=== PATIENT | male | born 1985 | race African-American/Black ===

== ENCOUNTER 2020-11-23 19:20 | Inpatient (IN) | payer OTHER ==
[2020-11-23] MEDS ORDERED: morphine CARPU-JECT 4 MG/1 ML DISP.SYRIN IVPUSH ONE (20:38)
[2020-11-23] MEDS ORDERED: morphine SULFATE 4 MG/ML VIAL ONE ×2 (21:09→22:59)
[2020-11-23 21:49] LABS: INR 1.04 (0.83-1.09); PROTHROMBIN TIME (PATIENT) 12.6 SEC (9.7-13.0)
[2020-11-23 21:53] LABS: POTASSIUM 3.8 mmol/L (3.5-5.1)
[2020-11-23 21:55] LABS: CALCIUM 9.4 mg/dL (8.5-10.1)
[2020-11-23 21:56] LABS: ALBUMIN 4.2 g/dl (3.4-5.0); BLOOD UREA NITROGEN 21.3 mg/dL (7-18)
[2020-11-23 21:59] LABS: CREATININE 1.3 mg/dL (0.55-1.3)
[2020-11-23 22:00] LABS: BILIRUBIN,TOTAL 0.4 mg/dL (0.2-1)
[2020-11-23] MEDS: morphine SULFATE 4 MG/ML VIAL IVPUSH ONE ×2 (22:11→23:18)
[2020-11-23] MEDS ORDERED: CLINDAMYCIN 900 MG PREMIX IVPB 900 MG/50 ML BAG IVPB ONE ×2 (22:49→23:00)
[2020-11-23] MEDS ORDERED: CLINDAMYCIN 600MG PREMIX IVPB 600 MG/50 ML BAG IVPB ONE (22:59)
[2020-11-24 00:07] LABS: BASO % 0.8 % (0-2.0); EOS % 0.8 % (0-4.5); HEMATOCRIT 35.7 % (35.4-49); HEMOGLOBIN 11.6 GM/dL (11.7-16.9); LYMPH % 19.1 % (8-40); MCH 26.1 pg (25.7-33.7); MCHC 32.5 g/dl (32.0-35.9); MEAN CELL VOLUME 80.3 fl (80-96); MEAN PLT VOLUME 7.6 fl (7.5-11.1); MONO % 9.7 % (3.8-10.2); NEUT % 69.6 % (42.8-82.8); PLATELET COUNT 269 K/MM3 (134-434); RBC 4.45 M/mm3 (4.00-5.60); RDW 16.1 % (11.9-15.9); WHITE BLOOD COUNT 14.7 K/mm3 (4.0-10.0)
[2020-11-24] MEDS: CLINDAMYCIN 600MG PREMIX IVPB 600 MG/50 ML BAG IVPB SCH ×2 (04:12→10:54)
[2020-11-24] MEDS ORDERED: morphine CARPU-JECT 4 MG/1 ML DISP.SYRIN IVPUSH ONE (04:35)
[2020-11-24] MEDS ORDERED: morphine SULFATE 4 MG/ML VIAL ONE (04:36)
[2020-11-24] MEDS ORDERED: HEPARIN NA (PORCINE) 5,000 UNITS/ML 1ML VIAL ONE (06:15)
[2020-11-24] MEDS: HEPARIN NA (PORCINE) 5,000 UNITS/ML 1ML VIAL SQ SCH ×3 (06:25→22:29)
[2020-11-24] MEDS ORDERED: PIPERACILLIN/TAZOB 3.375 GM 3.375 GM in DEXTROSE 5%-WATER - 50 ML IVPB SCH ×2 (10:00→13:15)
[2020-11-24] MEDS ORDERED: PIPERACILLIN/TAZOB 3.375 GM 3.375 GM/50 ML BAG IVPB ONE (10:14)
[2020-11-24] MEDS ORDERED: CLINDAMYCIN 600MG PREMIX IVPB 600 MG/50 ML BAG IVPB ONE (10:14)
[2020-11-24] MEDS ORDERED: PROPOFOL 20 ML ONE ×2 (18:08)
[2020-11-24] MEDS ORDERED: LACTATED RINGERS SOLUTION 1,000 ML IV SCH (18:30)
[2020-11-24] MEDS ORDERED: LABETALOL HCL 5 MG/1 ML (100MG/20 ML VIAL) IVPUSH PRN (18:50)
[2020-11-24] MEDS ORDERED: traMADol HCL 50 MG TABLET PO PRN (18:50)
[2020-11-24] MEDS ORDERED: hydrALAZINE HCL 20 MG/ML VIAL IVPUSH PRN (19:18)
[2020-11-24 20:29] VITALS: BMI 34.0
[2020-11-24] MEDS: LACTATED RINGERS SOLUTION 1,000 ML IV SCH (22:29)
[2020-11-24] MEDS: DOCUSATE SODIUM 100 MG CAPSULE (FP) PO SCH (22:30)
[2020-11-25] MEDS ORDERED: DEXTROSE 5%-WATER - 50 ML IVPB ONE ×3 (01:14→16:02)
[2020-11-25] MEDS ORDERED: PIPERACILLIN/TAZOBACTAM 3.375 GM VIAL IVPB ONE ×3 (01:14→16:02)
[2020-11-25] MEDS: PIPERACILLIN/TAZOB 3.375 GM 3.375 GM in DEXTROSE 5%-WATER - 50 ML IVPB SCH ×3 (01:52→17:06)
[2020-11-25] MEDS: HEPARIN NA (PORCINE) 5,000 UNITS/ML 1ML VIAL SQ SCH ×3 (05:41→21:54)
[2020-11-25] MEDS: DOCUSATE SODIUM 100 MG CAPSULE (FP) PO SCH ×3 (05:42→21:53)
[2020-11-25 09:04] LABS: BASO % 0.8 % (0-2.0); EOS % 2.1 % (0-4.5); HEMATOCRIT 35.3 % (35.4-49); HEMOGLOBIN 11.6 GM/dL (11.7-16.9); LYMPH % 24.2 % (8-40); MCH 26.6 pg (25.7-33.7); MCHC 32.8 g/dl (32.0-35.9); MEAN CELL VOLUME 81.2 fl (80-96); MEAN PLT VOLUME 7.9 fl (7.5-11.1); MONO % 7.5 % (3.8-10.2); NEUT % 65.4 % (42.8-82.8); PLATELET COUNT 279 K/MM3 (134-434); RBC 4.35 M/mm3 (4.00-5.60); RDW 16.2 % (11.9-15.9); WHITE BLOOD COUNT 10.1 K/mm3 (4.0-10.0)
[2020-11-25 09:11] LABS: INR 1.04 (0.83-1.09); PROTHROMBIN TIME (PATIENT) 12.6 SEC (9.7-13.0)
[2020-11-25 09:35] LABS: CALCIUM 8.9 mg/dL (8.5-10.1)
[2020-11-25 09:36] LABS: BLOOD UREA NITROGEN 14.2 mg/dL (7-18)
[2020-11-25 09:37] LABS: ALBUMIN 3.1 g/dl (3.4-5.0)
[2020-11-25 09:39] LABS: CREATININE 0.9 mg/dL (0.55-1.3)
[2020-11-25 09:40] LABS: BILIRUBIN,TOTAL 0.5 mg/dL (0.2-1)
[2020-11-25 09:41] LABS: TOT PROT 6.8 g/dl (6.4-8.2)
[2020-11-25] MEDS: amLODIPine BESYLATE 5 MG TABLET (FP) PO SCH (09:54)
[2020-11-25] MEDS ORDERED: CARVEDILOL 6.25 MG TABLET (FP) PO SCH (10:00)
[2020-11-25] MEDS: CARVEDILOL 6.25 MG TABLET (FP) PO SCH ×2 (11:30→21:53)
[2020-11-25] MEDS: LACTATED RINGERS SOLUTION 1,000 ML IV SCH (21:53)
[2020-11-25] MEDS: POLYETHYLENE GLYCOL 3350 119 GM BTL PO SCH (21:54)
[2020-11-25] MEDS ORDERED: SENNOSIDES 8.6MG TABLET (FP) PO SCH (22:00)
[2020-11-26] MEDS ORDERED: PIPERACILLIN/TAZOBACTAM 3.375 GM VIAL IVPB ONE ×2 (02:18→08:36)
[2020-11-26] MEDS ORDERED: DEXTROSE 5%-WATER - 50 ML IVPB ONE ×2 (02:19→08:36)
[2020-11-26] MEDS: PIPERACILLIN/TAZOB 3.375 GM 3.375 GM in DEXTROSE 5%-WATER - 50 ML IVPB SCH ×2 (02:23→10:11)
[2020-11-26] MEDS: HEPARIN NA (PORCINE) 5,000 UNITS/ML 1ML VIAL SQ SCH ×2 (05:59→13:56)
[2020-11-26] MEDS: DOCUSATE SODIUM 100 MG CAPSULE (FP) PO SCH ×2 (05:59→13:55)
[2020-11-26] MEDS: CARVEDILOL 6.25 MG TABLET (FP) PO SCH ×2 (08:38→09:26)
[2020-11-26] MEDS: POLYETHYLENE GLYCOL 3350 119 GM BTL PO SCH ×2 (08:38→09:26)
[2020-11-26] MEDS: amLODIPine BESYLATE 5 MG TABLET (FP) PO SCH ×2 (08:38→09:26)
[2020-11-26 09:34] LABS: EOS % 4.2 % (0-4.5); HEMATOCRIT 37.6 % (35.4-49); HEMOGLOBIN 12.2 GM/dL (11.7-16.9); LYMPH % 31.7 % (8-40); MCH 26.4 pg (25.7-33.7); MCHC 32.5 g/dl (32.0-35.9); MEAN CELL VOLUME 81.3 fl (80-96); MEAN PLT VOLUME 7.7 fl (7.5-11.1); MONO % 9.2 % (3.8-10.2); NEUT % 53.9 % (42.8-82.8); PLATELET COUNT 324 K/MM3 (134-434); RBC 4.62 M/mm3 (4.00-5.60); RDW 16.1 % (11.9-15.9); WHITE BLOOD COUNT 9.4 K/mm3 (4.0-10.0)
[2020-11-26 09:53] LABS: POTASSIUM 4.2 mmol/L (3.5-5.1)
[2020-11-26 10:01] LABS: ALBUMIN 3.5 g/dl (3.4-5.0); BLOOD UREA NITROGEN 10.8 mg/dL (7-18); CALCIUM 9.6 mg/dL (8.5-10.1)
[2020-11-26] MEDS ORDERED: PT OWN MED DRAWER 7, Y5N ONE (10:01)
[2020-11-26 10:05] LABS: CREATININE 1.1 mg/dL (0.55-1.3)
[2020-11-26 10:06] LABS: BILIRUBIN,TOTAL 0.5 mg/dL (0.2-1); TOT PROT 7.6 g/dl (6.4-8.2)
[2020-11-26 14:56] VITALS: BP 123/66; PULSE 88; TEMP 97.8
== END 2020-11-26 18:47 | disposition home or self-care (01) | DRG 395 ==
LOC: EDSEX 19:20 → JER 19:20 → JERBED 23:46 → J6S 11-24 20:11
PROVIDERS: ADMIT Internal Medicine; ATTEND Internal Medicine
PROC: 0D9Q3ZX Drainage of Anus, Percutaneous Approach, Diagnostic (ICD-10-PCS; principal; 2020-11-24 17:00)
DX: K61.0 Anal abscess (principal); I10 Essential (primary) hypertension; E66.01 Morbid (severe) obesity due to excess calories; E78.5 Hyperlipidemia, unspecified; Z68.34 Body mass index [BMI] 34.0-34.9, adult
CPT/HCPCS: 36415; 72193-TC; 80053; 80061; 83036; 83605; 83721; 83735; 84100; 84443; 85025; 85610; 86850; 86900; 86901; 87040; 87070; 87076; 87186; 87205; 94760; 99285-25; C9803; J1644; Q9967; U0003

== ENCOUNTER 2023-07-15 10:43 | Emergency (ER) | payer BC, OTHER ==
[2023-07-15 10:51] VITALS: BP 123/86; PULSE 83; RESP 18; TEMP 98.8; BMI 33.4
== END 2023-07-15 11:56 | disposition home or self-care (01) ==
LOC: JER 10:43 → JERFT 10:43
DX: H00.021 Hordeolum internum right upper eyelid (principal); H53.8 Other visual disturbances; H57.11 Ocular pain, right eye
CPT/HCPCS: 99283-25

== ENCOUNTER 2023-11-09 19:36 | Emergency (ER) | payer BC ==
[2023-11-09 20:05] VITALS: BP 112/64; PULSE 110; RESP 18; TEMP 99.5; BMI 33.4
[2023-11-09] MEDS ORDERED: DEXAMETHASONE SOD PHOSPHATE 10 MG/1 ML VIAL IM ONE (22:02)
[2023-11-09] MEDS ORDERED: ALBUTEROL SO4 2.5/IPRATROPIUM 0.5 INH SOL 3 ML VIAL.NEB. NEB ONE ×4 (22:02→23:08)
[2023-11-09] MEDS ORDERED: DEXAMETHASONE SOD PHOSPHATE 10 MG/1 ML VIAL ONE (22:12)
[2023-11-09] MEDS ORDERED: KETOROLAC TROMETHAMINE 30 MG/1 ML VIAL IM ONE (22:36)
[2023-11-09] MEDS ORDERED: KETOROLAC TROMETHAMINE 30 MG/1 ML VIAL ONE (22:37)
== END 2023-11-09 23:43 | disposition home or self-care (01) ==
LOC: JER 19:36 → JERFT 19:36
PROC: 3E0233Z Introduction of Anti-inflammatory into Muscle, Percutaneous Approach (ICD-10-PCS; principal; 2023-11-09)
PROC: 3E023GC Introduction of Other Therapeutic Substance into Muscle, Percutaneous Approach (ICD-10-PCS; 2023-11-09)
PROC: 3E0F7GC Introduction of Other Therapeutic Substance into Respiratory Tract, Via Natural or Artificial Opening (ICD-10-PCS; 2023-11-09)
PROC: 3E0F7GC Introduction of Other Therapeutic Substance into Respiratory Tract, Via Natural or Artificial Opening (ICD-10-PCS; 2023-11-09)
DX: R09.81 Nasal congestion (principal); J10.1 Influenza due to other identified influenza virus with other respiratory manifestations; Z20.822 Contact with and (suspected) exposure to COVID-19
CPT/HCPCS: 0241U-QW; 87651; 99284-25; J1100

== ENCOUNTER 2024-10-17 20:00 | Inpatient (IN) | payer BC ==
[2024-10-17] MEDS ORDERED: ACETAMINOPHEN INJECTION 100 ML ONE (20:49)
[2024-10-17] MEDS: ACETAMINOPHEN 1000 MG/100 ML BAG IVPB ONE (21:00)
[2024-10-17 21:10] LABS: HEMATOCRIT 40.2 % (35.4-49); HEMOGLOBIN 13.1 G/dL (11.7-16.9); MCH 25.7 pg (25.7-33.7); MCHC 32.5 g/dl (32.0-35.9); MEAN CELL VOLUME 79.1 fl (80-96); MEAN PLT VOLUME 8.4 fl (7.5-11.1); PLATELET COUNT 330.4 10^3/uL (134-434); RBC 5.08 10^6/uL (4.00-5.60); WHITE BLOOD COUNT 16.4 10^3/uL (4.0-10.8)
[2024-10-17 21:32] LABS: ALBUMIN 4.2 g/dl (3.4-5.0); BILIRUBIN,TOTAL 0.4 mg/dl (0.2-1); CALCIUM 9.3 mg/dl (8.5-10.1); CREATININE 1.1 mg/dl (0.6-1.3); POTASSIUM 3.8 mmol/L (3.5-5.1); TOT PROT 7.4 g/dl (6.4-8.2)
[2024-10-17 21:38] LABS: PLATELET ESTIMATE ADEQUATE
[2024-10-17] MEDS ORDERED: KETOROLAC TROMETHAMINE 30 MG/1 ML VIAL ONE (23:02)
[2024-10-17] MEDS: KETOROLAC TROMETHAMINE 30 MG/1 ML VIAL IVPUSH ONE (23:06)
[2024-10-17] MEDS ORDERED: PIPERACILLIN/TAZOBACTAM 4.5 GM VIAL IVPB ONE (23:37)
[2024-10-17] MEDS: PIPERACILLIN/TAZOB 4.5 GM 4.5 GM in DEXTROSE 5%-WATER 100 ML IVPB ONE (23:51)
[2024-10-18 01:21] VITALS: RESP 18; BMI 32.4
[2024-10-18] MEDS ORDERED: PIPERACILLIN/TAZOB 3.375 GM 3.375 GM in DEXTROSE 5%-WATER - 50 ML IVPB SCH (06:00)
[2024-10-18 07:37] VITALS: TEMP 98
[2024-10-18] MEDS: INSULIN ASPART SLIDING SCALE (NOVOLOG) 1 VIAL SQ SCH (07:54)
[2024-10-18 08:58] VITALS: BP 121/86; PULSE 77
[2024-10-18] MEDS: PIPERACILLIN/TAZOB 3.375 GM 3.375 GM in DEXTROSE 5%-WATER - 50 ML IVPB SCH (09:33)
[2024-10-18] MEDS: ROSUVASTATIN CA 10 MG TABLET PO SCH (09:33)
[2024-10-18] MEDS: FOLIC ACID 1 MG TABLET (FP) PO SCH (09:34)
[2024-10-18] MEDS: CARVEDILOL 6.25 MG TABLET (FP) PO SCH (09:34)
[2024-10-18] MEDS: ACETAMINOPHEN 325 MG TABLET (FP) PO PRN (09:34)
[2024-10-18] MEDS: amLODIPine BESYLATE 5 MG TABLET (FP) PO SCH (09:34)
[2024-10-18] MEDS: morphine SULFATE 4 MG/ML VIAL IVPUSH PRN (09:38)
[2024-10-18 10:18] LABS: BASO % 0.5 % (0-2.0); EOS % 0.4 % (0-4.5); HEMATOCRIT 39.6 % (35.4-49); HEMOGLOBIN 12.2 GM/dL (11.7-16.9); MCH 24.5 pg (25.7-33.7); MCHC 30.8 g/dl (32.0-35.9); MEAN CELL VOLUME 79.6 fl (80-96); MEAN PLT VOLUME 8.2 fl (7.5-11.1); MONO % 9.6 % (3.8-10.2); NEUT % 69.5 % (42.8-82.8); PLATELET COUNT 341 10^3/uL (134-434); RBC 4.98 M/mm3 (4.00-5.60); RDW 17.2 % (11.9-15.9)
== END 2024-10-18 11:26 | disposition home or self-care (01) | DRG 395 ==
LOC: FER 20:00 → FM/S 10-18 00:16 → UNDOADMIN 10-18 00:20 → FM/S 10-18 00:20
PROVIDERS: ADMIT Student in an Organized Health Care Education/Training Program; ATTEND Internal Medicine
DX: K61.1 Rectal abscess (principal); I10 Essential (primary) hypertension; E11.9 Type 2 diabetes mellitus without complications; Z79.4 Long term (current) use of insulin
CPT/HCPCS: 36415; 74177-TC; 80053; 82962; 85025; 85027; 99285-25; J0131; Q9967

== ENCOUNTER 2024-10-22 20:40 | Day surgery (SDC) | payer BC ==
[2024-10-22] MEDS ORDERED: morphine SULFATE 4 MG/ML VIAL ONE (22:10)
[2024-10-22 22:13] LABS: BASO % 0.9 % (0-2.0); EOS % 0.7 % (0-4.5); HEMATOCRIT 37.9 % (35.4-49); HEMOGLOBIN 11.9 GM/dL (11.7-16.9); LYMPH % 21.1 % (8-40); MCH 24.7 pg (25.7-33.7); MCHC 31.3 g/dl (32.0-35.9); MEAN PLT VOLUME 7.5 fl (7.5-11.1); MONO % 6.9 % (3.8-10.2); NEUT % 70.4 % (42.8-82.8); PLATELET COUNT 381 10^3/uL (134-434); RDW 17.4 % (11.9-15.9); WHITE BLOOD COUNT 17.3 K/mm3 (4.0-10.0)
[2024-10-22] MEDS: morphine CARPU-JECT 4 MG/1 ML DISP.SYRIN IVPUSH ONE (22:16)
[2024-10-22 22:17] LABS: INR 1.1 (0.83-1.09); PROTHROMBIN TIME (PATIENT) 12.6 SEC (9.7-13.0)
[2024-10-22 22:21] LABS: ACTIVATED PTT 28.5 SECONDS (25.2-36.5)
[2024-10-22 22:37] LABS: POTASSIUM 4.2 mmol/L (3.5-5.1)
[2024-10-22 22:39] LABS: ALBUMIN 3.7 g/dl (3.4-5.0); BLOOD UREA NITROGEN 17.5 mg/dL (7-18); CALCIUM 9.1 mg/dL (8.5-10.1)
[2024-10-22 22:44] LABS: BILIRUBIN,TOTAL 0.2 mg/dL (0.2-1); TOT PROT 7.7 g/dl (6.4-8.2)
[2024-10-22] MEDS: LACTATED RINGERS SOLUTION 1,000 ML/1,000 ML INFUS.BAG IV SCH (23:00)
[2024-10-22] MEDS ORDERED: PIPERACILLIN/TAZOB 3.375 GM 3.375 GM in DEXTROSE 5%-WATER - 50 ML IVPB SCH (23:30)
[2024-10-22] MEDS ORDERED: ACETAMINOPHEN 325 MG TABLET (FP) PO PRN (23:32)
[2024-10-22 23:36] LABS: HIV INTERPRETATION NEGATIVE (NEGATIVE)
[2024-10-22] MEDS ORDERED: CARVEDILOL 6.25 MG TABLET (FP) ONE (23:45)
[2024-10-22] MEDS: CARVEDILOL 6.25 MG TABLET (FP) PO SCH (23:46)
[2024-10-23] MEDS ORDERED: PIPERACILLIN/TAZOB 3.375 GM 3.375 GM/50 ML BAG IVPB ONE (00:57)
[2024-10-23] MEDS: PIPERACILLIN/TAZOB 3.375 GM 3.375 GM in DEXTROSE 5%-WATER - 50 ML IVPB SCH (01:04)
[2024-10-23 02:44] VITALS: BMI 33.0
[2024-10-23] MEDS ORDERED: DOCUSATE SODIUM 100 MG CAPSULE (FP) PO PRN ×2 (07:43→14:55)
[2024-10-23 08:18] LABS: POTASSIUM 4.3 mmol/L (3.5-5.1)
[2024-10-23 08:21] LABS: BLOOD UREA NITROGEN 12.1 mg/dL (7-18); CALCIUM 8.9 mg/dL (8.5-10.1)
[2024-10-23 08:24] LABS: BASO % 0.3 % (0-2.0); CREATININE 0.9 mg/dL (0.55-1.3); EOS % 0.6 % (0-4.5); HEMATOCRIT 36.5 % (35.4-49); HEMOGLOBIN 11.8 GM/dL (11.7-16.9); LYMPH % 24.3 % (8-40); MCHC 32.3 g/dl (32.0-35.9); MEAN CELL VOLUME 77.4 fl (80-96); MEAN PLT VOLUME 7.5 fl (7.5-11.1); MONO % 8.8 % (3.8-10.2); PLATELET COUNT 337 10^3/uL (134-434); RBC 4.71 M/mm3 (4.00-5.60); RDW 17.2 % (11.9-15.9); WHITE BLOOD COUNT 13.4 K/mm3 (4.0-10.0)
[2024-10-23] MEDS: FOLIC ACID 1 MG TABLET (FP) PO SCH (09:26)
[2024-10-23] MEDS: amLODIPine BESYLATE 5 MG TABLET (FP) PO SCH (09:26)
[2024-10-23] MEDS: morphine SULFATE 4 MG/ML VIAL IVPUSH PRN ×2 (09:52→22:33)
[2024-10-23] MEDS ORDERED: PATIENT'S OWN MEDICATION (NON-FORMULARY) (Linaclotide 145 MCG Capsule) PO SCH (10:00)
[2024-10-23] MEDS ORDERED: BUPIVACAINE HCL/PF 0.5% (5MG/ML) 10 ML VIAL ONE (13:29)
[2024-10-23] MEDS ORDERED: LIDOCAINE 1%/EPI 1:100000 (20 ML MULTI DOSE VIAL) ONE (13:29)
[2024-10-23] MEDS ORDERED: oxyCODONE HCL 5 MG TABLET PO PRN ×2 (13:29→14:55)
[2024-10-23] MEDS ORDERED: ONDANSETRON 4 MG/2 ML VIAL IVPUSH PRN ×2 (13:29→14:55)
[2024-10-23] MEDS ORDERED: LACTATED RINGERS SOLUTION 1,000 ML IV SCH (13:30)
[2024-10-23] MEDS ORDERED: MIDAZOLAM HCL 2 MG/2 ML SINGLE DOSE VIAL ONE (13:43)
[2024-10-23] MEDS ORDERED: PROPOFOL 20 ML ONE (13:47)
[2024-10-23] MEDS ORDERED: ONDANSETRON 4 MG/2 ML VIAL ONE (14:05)
[2024-10-23] MEDS ORDERED: KETOROLAC TROMETHAMINE 30 MG/1 ML VIAL ONE (14:05)
[2024-10-23] MEDS: LIDOCAINE 1%/EPI 1:100000 (50 ML MULTI DOSE VIAL) INF ONE (14:16)
[2024-10-23] MEDS: BUPIVACAINE HCL/PF 0.25% (2.5MG/ML) 10 ML VIAL IJ ONE (14:17)
[2024-10-23] MEDS ORDERED: ACETAMINOPHEN 325 MG TABLET (FP) PO PRN (14:55)
[2024-10-23] MEDS: LACTATED RINGERS SOLUTION 1,000 ML/1,000 ML INFUS.BAG IV SCH (17:17)
[2024-10-23] MEDS: PIPERACILLIN/TAZOB 3.375 GM 50 ML IVPB SCH (18:50)
[2024-10-23] MEDS ORDERED: ROSUVASTATIN CA 10 MG TABLET PO SCH (22:00)
[2024-10-23] MEDS ORDERED: INSULIN (LEVEMIR) 100 UNITS/ML UNITS SQ SCH (22:00)
[2024-10-23] MEDS: ROSUVASTATIN CA 10 MG TABLET PO SCH (22:22)
[2024-10-23] MEDS: CARVEDILOL 6.25 MG TABLET (FP) PO SCH (22:22)
[2024-10-23] MEDS: INSULIN (LEVEMIR) 100 UNITS/ML UNITS SQ SCH (22:22)
[2024-10-24] MEDS: PIPERACILLIN/TAZOB 4.5 GM 4.5 GM/100 ML BAG IVPB SCH (01:17)
[2024-10-24 05:53] VITALS: TEMP 98.4
[2024-10-24 07:33] VITALS: RESP 18
[2024-10-24] MEDS: amLODIPine BESYLATE 5 MG TABLET (FP) PO SCH (09:43)
[2024-10-24] MEDS: FOLIC ACID 1 MG TABLET (FP) PO SCH (09:43)
[2024-10-24] MEDS ORDERED: LINACLOTIDE PO SCH ×2 (10:00)
[2024-10-24 14:43] VITALS: BP 131/88; PULSE 79
== END 2024-10-24 15:00 | disposition home or self-care (01) ==
LOC: JER 20:40 → JERBED 22:38 → UNDOADMOB 22:38 → JERBED 10-23 01:34 → J7W 10-23 01:34 → JASUSAT 10-23 15:58 → SUATTDRO 10-23 15:58 → J7W 10-24 08:55 → JASUSAT 10-24 15:00
PROC: 0D9Q0ZX Drainage of Anus, Open Approach, Diagnostic (ICD-10-PCS; principal; 2024-10-23 13:15)
DX: K61.0 Anal abscess (principal)
CPT/HCPCS: 36415; 71045-TC-FY; 80048; 80053; 80061; 82962; 83036; 85025; 85610; 85730; 86803; 86850; 86900; 86901; 87070; 87186; 87205; 87389; 93005; 93010; 94760; 99285-25